=== PATIENT | female | born 1940 | race Caucasian/White ===

== ENCOUNTER 2023-11-02 12:59 | Emergency (ER) | payer MEDICARE, OTHER, SELFPAY ==
[2023-11-02] VITALS (7 sets, daily range): BP systolic 108–154; BP diastolic 65–83; PULSE 80–103; RESP 16–20; TEMP 36.8; O2SAT 99–100
--- NOTE | ~2023-11-02 | CT_ITS ---
CT brain wo con Ordering provider: Bridget Woodruff MD History: 83 years Female with . confusion . Comparison: None. Technique: CT of the head without contrast. Radiation reduction technique utilized. DLP is 681 mGy FINDINGS: BRAIN PARENCHYMA AND CSF SPACES: Mild leukoaraiosis and diffuse cortical atrophy. Mild atheromatous d isease. No midline shift, mass effect or hemorrhage. The brain parenchyma and CSF spaces are otherwi se normal. VISUALIZED PARANASAL SINUSES: Well aerated. MASTOIDS: Well aerated. BONES: The bones appear intact. SOFT TISSUES: Visualized nasopharynx is normal. Superficial soft tissues are normal. IMPRESSION: No acute intracranial findings. Reviewed, dictated and finalized at location A.
--- NOTE | ~2023-11-02 | XR_ITS ---
EXAMINATION: XR chest 1V DATE: 11/02/2023 13:36 INDICATION: Confusion. TECHNIQUE: A single frontal view of the chest was obtained. COMPARISON: None. FINDINGS: There is no pneumonia, pleural effusion, or pneumothorax. The heart size is normal. IMPRESSION: 1. No acute cardiopulmonary disease. Reviewed, dictated and finalized at location A.
--- NOTE | 2023-11-02 13:17 | ED.AMS ---
HPI - Altered Mental Status General Chief Complaint: Altered Mental Status Stated Complaint: dementia, combative Time Seen by Provider: 11/02/23 13:17 Source: patient and family Mode of arrival: ambulatory Limitations: no limitations History of Present Illness HPI narrative: Patient used to live with her at home, history of dementia of unknown duration, her been hospitalized well and have week ago, patient's daughter and son visits her daily up to 1 hour a day, the our concern about patient unable to eat or drink right the are worried about if the patient able to take care of herself at home or not. The a telling me that patient was seen by a family physician 10-15 years ago, currently on no medications. Related Data Allergies Allergy/AdvReac Type Severity Reaction Status Date / Time No Known Allergies Allergy Verified 11/02/23 13:41 Review of Systems Review of Systems: ROS unobtainable: Yes unobtainable due to mental status PMFSH Family History Family History Mother Cerebrovascular accident Patient's mother is Father Family history of lymphoma Patient's father is Social History Social History Smoking status: Never smoker Alcohol intake: never Exam Narrative: General appearance: Well-developed, well-nourished Skin: Normal color Head: Normocephalic, nontraumatic Eyes: Clear conjunctiva ENT: Oropharynx normal, ears normal, nose normal Neck: Supple, nontender Chest and respiratory: Airway patent, no respiratory distress, no accessory muscle use Heart: Regular rate/rhythm Abdomen: Soft, nontender, no organomegaly, quiet bowel sounds Vascular: Normal peripheral pulses, normal capillary refill. Musculoskeletal: Normal range of motion, nontender back Neurologic: Alert and oriented to her name only Course Vital Signs Vital signs: Vital Signs Temperature 36.8 C 11/02/23 13:02 Pulse Rate 103 H 11/02/23 13:02 Respiratory Rate 20 11/02/23 13:02 Blood Pressure 115/83 11/02/23 13:02 Pulse Oximetry 99 11/02/23 13:02 Oxygen Delivery Room Air 11/02/23 13:02 Temperature 36.8 C 11/02/23 13:02 Pulse Rate 83 11/02/23 13:42 Respiratory Rate 20 11/02/23 13:39 Blood Pressure 154/81 H 11/02/23 13:39 Pulse Oximetry 100 11/02/23 13:46 Oxygen Delivery Room Air 11/02/23 13:46 MDM - Altered Mental Status MDM Narrative Medical decision making narrative: Patient came to the emergency room with her son and daughter requesting placement because of inability to take care of herself at home. The plan to get labs, EKG, chest x-ray, CT scan of the head to rule out the following differential diagnosis, electrolyte imbalance, dehydration, urinary tract infection, exacerbation of dementia secondary to stress/anxiety, possible CVA. Blood workup today and CT scan of the head and x-ray of the chest showed no significant abnormality. Patient got accepted to be transferred to a [place] [facility]. Family at the bedside. Differential Diagnosis Differential diagnosis: Likely altered mental status, dementia, hypoglycemia and hyponatremia Medical Records Attestation: I reviewed the patient's medical records. Lab Data Attestation: I reviewed the patient's lab results. 11/02/23 14:05 11/02/23 14:05 Labs: Lab Results 11/02/23 Range/Units 14:05 WBC 7.1 (4.5-10.0) K/mm3 RBC 4.69 (4.2-5.4) M/mm3 Hgb 14.6 (12.0-15.0) g/dL Hct 43.0 (37.0-47.0) % MCV 91.7 (80-100) fl MCH 31.1 (26-34) pg MCHC 34.0 (32-36) g/dl R
--- NOTE | 2023-11-02 13:18 | ECG_ITS ---
Test Date: 2023-11-02 17:19:12 Measurements Intervals [place] Rate: 77 P: -19 TX: 144 QRS: -30 QRSD: 83 T: 37 QT: 375 QTc: 424 Interpretive Statements SINUS RHYTHM RSR' IN V1 OR V2, RIGHT VCD OR RVH BORDERLINE T WAVE ABNORMALITY- ANTERIOR LEADS BORDERLINE ECG No previous ECG available for comparison Electronically Signed On 11-03-2023 06:22:00 CDT by Shawn Duke D.O.
[2023-11-02] MEDS: SODIUM CHLORIDE 0.9% IV 1,000 ML 999 ML IV CONT (13:54)
[2023-11-02 14:15] LABS: Basophils Absolute Auto 0.1 K/mm3 (0.0-0.1); Basophils Percent Auto 0.7 % (0.2-1.2); Eosinophils Percent Auto 0.3 % (0-4.4); Hemoglobin 14.6 g/dL (12.0-15.0); Immature Granulocyte Absolute 0.02 K/mm3 (0.00-0.031); Immature Granulocyte Percent A 0.3 % (0-0.5); Lymphocytes Absolute Auto 0.68 K/mm3 (0.9-3.2); Lymphocytes Percent Auto 9.6 % (18.3-44.2); Mean Corpuscular Hemoglobin 31.1 pg (26-34); Mean Corpuscular Volume 91.7 fl (80-100); Mean Platelet Volume 10.9 fl (7.4-10.4); Monocytes Absolute Auto 0.6 K/mm3 (0.1-0.6); Monocytes Percent Auto 8.4 % (2.6-8.5); Neutrophils Absolute Auto 5.8 K/mm3 (1.3-6.7); Neutrophils Percent Auto 80.7 % (45.5-73.1); Platelet Count Result 249 k/mm3 (150-375); Red Blood Count 4.69 M/mm3 (4.2-5.4); Red Cell Distribution Width 13.7 % (11.5-14.5); White Blood Count 7.1 K/mm3 (4.5-10.0)
[2023-11-02 14:25] LABS: INR 1.1; Partial Thromboplastin Time 27.4 Seconds (22.3-36.8); Prothrombin Time 14.7 Seconds (11.1-14.7)
[2023-11-02 14:27] LABS: Alanine Aminotransferase 55 U/L (6-35); Albumin Level 4.5 g/dL (3.5-5.1); Alkaline Phosphatase 66 U/L (38-126); Anion Gap 13 mmol/L (4-12); Aspartate Amino Transferase 52 U/L (14-36); Bilirubin,Total 0.8 mg/dL (0.2-1.3); Blood Urea Nitrogen 52 mg/dL (7-17); Calcium 9.1 mg/dL (8.4-10.2); Carbon Dioxide 23 mmol/L (22-30); Chloride 103 mmol/L (98-107); Estimated CRCL calculation 28 ml/min; Estimated Glomerular Filt Rate 48; Glucose 96 mg/dL (65-110); Potassium 3.9 mmol/L (3.4-5.0); Sodium 139 mmol/L (137-145)
[2023-11-02 14:39] LABS: Troponin I 0.014 ng/mL (0.000-0.034)
[2023-11-02] MEDS: LORazepam (*CRX) 0.5 MG TABLET PO (17:29)
--- NOTE | 2023-11-02 17:36 | PCCCNOTE ---
1515 CC called to the ED to speak with family regarding placement of patient. Family choose to take the pt to [facility]. Adriana from [facility] came to evaluate pt and speak with the family. 1730: Pt discharged to family and they will take her to [facility] after discharge.
== END 2023-11-02 17:40 ==
PROVIDERS: Emergency Provider Emergency Medicine; PCP Internal Medicine
DX: F03.90 Unspecified dementia, unspecified severity, without behavioral disturbance, psychotic disturbance, mood disturbance, and anxiety (principal); Z60.2 Problems related to living alone; R94.31 Abnormal electrocardiogram [ECG] [EKG]
CPT/HCPCS: 36415; 70450; 71045; 80053; 84484; 85025; 85610; 85730; 87040; 93005; 96360; 99284; A9270; J7030